=== PATIENT | female | born 1990 | race Caucasian/White ===

== ENCOUNTER 2021-05-26 09:35 | Day surgery (SDC) | payer OTHER ==
[2021-05-26] MEDS ORDERED: LIDOCAINE HCL 2% 100 MG/5 ML IJ ONE (09:36)
[2021-05-26] MEDS ORDERED: Lactated Ringers 1,000 ML IV ONE (10:36)
[2021-05-26] MEDS ORDERED: DIPRIVAN 200 MG/20 ML IV ONE (10:59)
--- NOTE | 2021-05-26 12:07 | XRAY ---
Indication: Left C2-C5 MBB. Intraoperative fluoroscopy provided for 36 seconds. 2 digital spot image submitted for interpretation demonstrates posterior needle tips projecting over the expected left C2-C5 nerve roots. Correlate with intraoperative findings/report.
--- NOTE | 2021-05-26 12:31 | XRAY ---
36 seconds fluoroscopy time in surgery for left C2-C5 MBB.
== END 2021-05-26 11:27 | disposition home or self-care (01) ==
LOC: SDC-PAIN 09:35
PROVIDERS: ATTEND Psychiatry & Neurology Pain Medicine
DX: M47.812 Spondylosis without myelopathy or radiculopathy, cervical region (principal); E11.9 Type 2 diabetes mellitus without complications; Z79.899 Other long term (current) drug therapy
CPT/HCPCS: 36415; 64490; 64491; 64492; 72040; 77002; 82947; 84702; J2704

== ENCOUNTER 2021-07-21 11:33 | Day surgery (SDC) | payer OTHER ==
[2021-07-21] MEDS ORDERED: LIDOCAINE HCL 2% 100 MG/5 ML IJ ONE (11:34)
[2021-07-21] MEDS ORDERED: DIPRIVAN 200 MG/20 ML IV ONE ×2 (13:17→13:19)
[2021-07-21] MEDS ORDERED: Lactated Ringers 1,000 ML IV ONE ×2 (13:22)
--- NOTE | 2021-07-21 14:28 | XRAY ---
Indication: Right C2-C5 MBB. Intraoperative fluoroscopy provided for 47 seconds. 2 digital spot image submitted for interpretation demonstrates posterior needle tips projecting over the expected right C2-C5 nerve roots. Correlate with intraoperative findings/report.
--- NOTE | 2021-07-21 14:30 | XRAY ---
47 seconds fluoroscopy time in surgery for right C2-C5 MBB.
== END 2021-07-21 13:43 | disposition home or self-care (01) ==
LOC: SDC-PAIN 11:33
PROVIDERS: ATTEND Psychiatry & Neurology Pain Medicine
DX: M47.812 Spondylosis without myelopathy or radiculopathy, cervical region (principal); E11.9 Type 2 diabetes mellitus without complications; Z79.899 Other long term (current) drug therapy
CPT/HCPCS: 36415; 64490; 64491; 64492; 72040; 77002; 81025; 82947; J2704

== ENCOUNTER 2021-09-01 11:32 | Day surgery (SDC) | payer OTHER ==
[2021-09-01] MEDS ORDERED: Marcaine Mpf 0.5% Vial 30 Ml IJ ONE (11:33)
[2021-09-01] MEDS ORDERED: DIPRIVAN 200 MG/20 ML IV ONE (12:44)
[2021-09-01] MEDS ORDERED: Lactated Ringers 1,000 ML IV ONE (12:57)
--- NOTE | 2021-09-01 14:32 | XRAY ---
Indication: Left C2-C5 MBB. Intraoperative fluoroscopy provided for 26 seconds. 3 digital spot image submitted for interpretation demonstrates posterior needle tips projecting over the expected left C2-C5 nerve roots. Correlate with intraoperative findings/report.
--- NOTE | 2021-09-01 14:36 | XRAY ---
26 seconds of fluoroscopy was used in surgery for a left C2-C5 MBB.
== END 2021-09-01 13:17 | disposition home or self-care (01) ==
LOC: SDC-PAIN 11:32
PROVIDERS: ATTEND Psychiatry & Neurology Pain Medicine
DX: M47.812 Spondylosis without myelopathy or radiculopathy, cervical region (principal); E11.9 Type 2 diabetes mellitus without complications; Z79.899 Other long term (current) drug therapy
CPT/HCPCS: 64490; 64491; 64492; 72040; 77002; 81025; 82947; J2704

== ENCOUNTER 2021-11-10 11:44 | Day surgery (SDC) | payer OTHER ==
[2021-11-10] MEDS ORDERED: Marcaine Mpf 0.5% Vial 30 Ml IJ ONE (11:45)
[2021-11-10] MEDS ORDERED: DIPRIVAN 200 MG/20 ML IV ONE ×2 (12:52→13:03)
[2021-11-10] MEDS ORDERED: Lactated Ringers 1,000 ML IV ONE (13:46)
--- NOTE | 2021-11-10 14:33 | XRAY ---
Indication: Right C2-C5 MBB. Intraoperative fluoroscopy provided for 39 seconds. 2 digital spot image submitted for interpretation demonstrates posterior needle tips projecting over the expected right C2-C5 nerve roots. Correlate with intraoperative findings/report.
--- NOTE | 2021-11-11 09:19 | XRAY ---
39 seconds fluoroscopy time in surgery for right C2-C5 MBB.
== END 2021-11-10 13:20 | disposition home or self-care (01) ==
LOC: SDC-PAIN 11:44
PROVIDERS: ATTEND Psychiatry & Neurology Pain Medicine
DX: M47.812 Spondylosis without myelopathy or radiculopathy, cervical region (principal); E11.9 Type 2 diabetes mellitus without complications; Z79.899 Other long term (current) drug therapy
CPT/HCPCS: 36415; 64490; 64491; 64492; 72040; 77002; 82947; 84703; J2704

== ENCOUNTER 2021-12-15 07:02 | Day surgery (SDC) | payer OTHER ==
[2021-12-15] MEDS ORDERED: Decadron 4 MG INJ IV ONE (07:03)
[2021-12-15] MEDS ORDERED: Marcaine Mpf 0.5% Vial 30 Ml IJ ONE (07:03)
[2021-12-15] MEDS ORDERED: LIDOCAINE HCL 1% 50 MG/5 ML VL PF IJ ONE (07:03)
[2021-12-15] MEDS ORDERED: DIPRIVAN 200 MG/20 ML IV ONE (08:19)
--- NOTE | 2021-12-15 10:41 | XRAY ---
Indication: Right C2-C5 RFA. Intraoperative fluoroscopy provided for 1 minute 6 seconds. 3 digital spot image submitted for interpretation demonstrates posterior needle tips projecting over the expected right C2-C5 nerve roots. Correlate with intraoperative findings/report.
--- NOTE | 2021-12-15 10:55 | XRAY ---
One minute and 16 seconds of fluoroscopy was used in surgery for a right C2-C5 RFA.
[2021-12-15] MEDS ORDERED: Lactated Ringers 1,000 ML IV ONE (12:37)
== END 2021-12-15 08:55 | disposition home or self-care (01) ==
LOC: SDC-PAIN 07:02
PROVIDERS: ATTEND Psychiatry & Neurology Pain Medicine
DX: M47.812 Spondylosis without myelopathy or radiculopathy, cervical region (principal); Z79.899 Other long term (current) drug therapy
CPT/HCPCS: 01939; 64633; 64634; 72040; 77002; 81025; 82947; J1100; J2001; J2704

== ENCOUNTER 2021-12-22 06:57 | Day surgery (SDC) | payer OTHER ==
[2021-12-22] MEDS ORDERED: Marcaine Mpf 0.5% Vial 30 Ml IJ ONE (06:58)
[2021-12-22] MEDS ORDERED: Decadron 4 MG INJ IV ONE (06:58)
[2021-12-22] MEDS ORDERED: XYLOCAINE-MPF 1% 5ML SDV IJ ONE (06:58)
[2021-12-22] MEDS ORDERED: DIPRIVAN 200 MG/20 ML IV ONE ×2 (08:02→08:18)
[2021-12-22] MEDS ORDERED: Lactated Ringers 1,000 ML IV ONE (10:10)
--- NOTE | 2021-12-22 19:11 | XRAY ---
Indication: Left C2-C5 RFA. Intraoperative fluoroscopy provided for 48 seconds. 3 digital spot image submitted for interpretation demonstrates posterior needle tips projecting over the expected left C2-C5 nerve roots. Correlate with intraoperative findings/report.
--- NOTE | 2021-12-22 19:33 | XRAY ---
48 seconds of fluoroscopy was used in surgery for a left C2-C5 RFA.
== END 2021-12-22 08:50 | disposition home or self-care (01) ==
LOC: SDC-PAIN 06:57
PROVIDERS: ATTEND Psychiatry & Neurology Pain Medicine
DX: M47.812 Spondylosis without myelopathy or radiculopathy, cervical region (principal); E11.9 Type 2 diabetes mellitus without complications; Z79.899 Other long term (current) drug therapy
CPT/HCPCS: 01939; 64633; 64634; 72040; 77002; 81025; 82947; J1100; J2704

== ENCOUNTER 2022-03-16 06:43 | Day surgery (SDC) | payer OTHER ==
[2022-03-16] MEDS ORDERED: LIDOCAINE HCL 2% 100 MG/5 ML IJ ONE (06:44)
[2022-03-16] MEDS ORDERED: DIPRIVAN 200 MG/20 ML IV ONE (08:36)
--- NOTE | 2022-03-16 10:30 | XRAY ---
Indication: Bilateral L4-S1 MBB. Intraoperative fluoroscopy provided for 12 seconds. Single digital spot image submitted for interpretation demonstrates posterior needle tips projecting over the expected left and right L4-S1 nerve roots. Correlate with intraoperative findings/report.
--- NOTE | 2022-03-16 10:46 | XRAY ---
12 seconds of fluoroscopy was used in surgery for a bilateral L4-S1 MBB.
[2022-03-16] MEDS ORDERED: Lactated Ringers 1,000 ML IV ONE (12:48)
== END 2022-03-16 09:05 | disposition home or self-care (01) ==
LOC: SDC-PAIN 06:43
PROVIDERS: ATTEND Psychiatry & Neurology Pain Medicine
DX: M47.816 Spondylosis without myelopathy or radiculopathy, lumbar region (principal); Z79.899 Other long term (current) drug therapy
CPT/HCPCS: 64493; 64494; 72020; 77002; 81025; 82947; J2704

== ENCOUNTER 2022-05-18 07:00 | Day surgery (SDC) | payer OTHER ==
[2022-05-18] MEDS ORDERED: BUPIVACAINE 0.5% VIAL IJ ONE (07:01)
[2022-05-18] MEDS ORDERED: DIPRIVAN 200 MG/20 ML IV ONE (08:32)
--- NOTE | 2022-05-18 10:05 | XRAY ---
Indication: Bilateral L4-S1 MBB. Intraoperative fluoroscopy provided for 15 seconds. Single digital spot image submitted for interpretation demonstrates posterior needle tips projecting over the expected left and right L4-S1 nerve roots. Correlate with intraoperative findings/report.
--- NOTE | 2022-05-18 11:35 | XRAY ---
15 seconds of fluoroscopy was used in surgery for a bilateral L4-S1 MBB.
[2022-05-18] MEDS ORDERED: Lactated Ringers 1,000 ML IV ONE (13:52)
== END 2022-05-18 09:00 | disposition home or self-care (01) ==
LOC: SDC-PAIN 07:00
PROVIDERS: ATTEND Psychiatry & Neurology Pain Medicine
DX: M47.816 Spondylosis without myelopathy or radiculopathy, lumbar region (principal); E11.9 Type 2 diabetes mellitus without complications; Z79.899 Other long term (current) drug therapy
CPT/HCPCS: 64493; 64494; 72020; 77002; 81025; 82947; J2704

== ENCOUNTER 2022-06-29 10:53 | Day surgery (SDC) | payer OTHER ==
[2022-06-29] MEDS ORDERED: Depo-Medrol 40 MG/ML IM ONE (10:54)
[2022-06-29] MEDS ORDERED: BUPIVACAINE 0.5% VIAL IJ ONE (10:54)
[2022-06-29] MEDS ORDERED: LIDOCAINE HCL 1% 50 MG/5 ML VL PF IJ ONE (10:54)
[2022-06-29 11:08] LABS: HCG URINE TEST NEGATIVE (NEGATIVE)
[2022-06-29] MEDS ORDERED: DIPRIVAN 200 MG/20 ML IV ONE (12:27)
--- NOTE | 2022-06-29 14:54 | XRAY ---
Indication: Right L4-S1 RFA. Interoperative fluoroscopy provided for 20 seconds. 6 digital spot image submitted for interpretation demonstrates posterior needle tips projecting over the expected right L4-S1 nerve roots. Correlate with intraoperative findings/report.
--- NOTE | 2022-06-29 14:57 | XRAY ---
20 seconds of fluoroscopy was used in surgery for a right L4-S1 RFA.
[2022-06-29] MEDS ORDERED: Lactated Ringers 1,000 ML IV ONE (15:04)
== END 2022-06-29 13:10 | disposition home or self-care (01) ==
LOC: SDC-PAIN 10:53
PROVIDERS: ATTEND Psychiatry & Neurology Pain Medicine
DX: M47.816 Spondylosis without myelopathy or radiculopathy, lumbar region (principal); E11.9 Type 2 diabetes mellitus without complications; Z79.899 Other long term (current) drug therapy
CPT/HCPCS: 36415; 64635; 64636; 72100; 77002; 81025; 82947; J1030; J2001; J2704

== ENCOUNTER 2022-07-06 10:49 | Day surgery (SDC) | payer OTHER ==
[2022-07-06] MEDS ORDERED: BUPIVACAINE 0.5% VIAL IJ ONE (10:50)
[2022-07-06] MEDS ORDERED: LIDOCAINE HCL 1% 50 MG/5 ML VL PF IJ ONE (10:50)
[2022-07-06] MEDS ORDERED: Depo-Medrol 40 MG/ML IM ONE (10:50)
[2022-07-06 11:10] LABS: HCG URINE TEST NEGATIVE (NEGATIVE)
[2022-07-06] MEDS ORDERED: DIPRIVAN 200 MG/20 ML IV ONE (12:33)
--- NOTE | 2022-07-06 15:31 | XRAY ---
Indication: Left L4-S1 RFA. Intraoperative fluoroscopy provided for 24 seconds. 3 digital spot image submitted for interpretation demonstrates posterior needle tips projecting over the expected left L4-S1 nerve roots. Correlate with intraoperative findings/report.
[2022-07-06] MEDS ORDERED: Lactated Ringers 1,000 ML IV ONE (15:41)
--- NOTE | 2022-07-06 17:08 | XRAY ---
24 seconds of fluoroscopy was used in surgery for a left L4-S1 RFA.
== END 2022-07-06 13:10 | disposition home or self-care (01) ==
LOC: SDC-PAIN 10:49
PROVIDERS: ATTEND Psychiatry & Neurology Pain Medicine
DX: M47.816 Spondylosis without myelopathy or radiculopathy, lumbar region (principal); E11.9 Type 2 diabetes mellitus without complications; Z79.899 Other long term (current) drug therapy
CPT/HCPCS: 36415; 64635; 64636; 72100; 77002; 81025; 82947; J1030; J2001; J2704

== ENCOUNTER 2023-02-23 08:19 | Day surgery (SDC) | payer OTHER ==
[2023-02-23] MEDS ORDERED: BUPIVACAINE 0.5% VIAL IJ ONE (08:20)
[2023-02-23] MEDS ORDERED: Depo-Medrol 40 MG/ML IM ONE (08:20)
[2023-02-23 09:11] LABS: HCG URINE TEST NEGATIVE (NEGATIVE)
[2023-02-23] MEDS ORDERED: DIPRIVAN 200 MG/20 ML IV ONE (09:40)
[2023-02-23] MEDS ORDERED: Versed 2 MG/2 ML Injection ONE (09:43)
--- NOTE | 2023-02-23 10:33 | XRAY ---
Indication: Bilateral SI joint injection. Intraoperative fluoroscopy provided for 15 seconds. 4 digital spot images submitted for interpretation demonstrates posterior needle tip projecting over the left and right SI joint. Correlate with intraoperative findings/report.
[2023-02-23] MEDS ORDERED: Lactated Ringers 1,000 ML IV ONE (12:04)
--- NOTE | 2023-02-24 10:57 | XRAY ---
15 seconds of fluoroscopy was used in surgery for a bilateral sacroiliac joint injection.
== END 2023-02-23 10:10 | disposition home or self-care (01) ==
LOC: SDC-PAIN 08:19
PROVIDERS: ATTEND Psychiatry & Neurology Pain Medicine
DX: M46.1 Sacroiliitis, not elsewhere classified (principal); E11.9 Type 2 diabetes mellitus without complications
CPT/HCPCS: 01992; 27096; 72202; 77002; 81025; 82947; G0260; J1030; J2250; J2704

== ENCOUNTER 2023-04-19 08:33 | Day surgery (SDC) | payer OTHER ==
[2023-04-19] MEDS ORDERED: XYLOCAINE-MPF 1% 5ML SDV IJ ONE (08:34)
[2023-04-19] MEDS ORDERED: BUPIVACAINE 0.5% VIAL IJ ONE (08:34)
[2023-04-19] MEDS ORDERED: Decadron 4 MG INJ IV ONE (08:34)
[2023-04-19 09:04] LABS: HCG URINE TEST NEGATIVE (NEGATIVE)
[2023-04-19] MEDS ORDERED: DIPRIVAN 200 MG/20 ML IV ONE (10:09)
[2023-04-19] MEDS ORDERED: Versed 2 MG/2 ML Injection ONE (10:10)
--- NOTE | 2023-04-19 12:04 | XRAY ---
Indication: Left C2-C4 RFA. Intraoperative fluoroscopy provided for 37 seconds. 3 digital spot image submitted for interpretation demonstrates posterior needle tips projecting over the expected left C2-C4 nerve roots. Correlate with intraoperative findings/report.
--- NOTE | 2023-04-19 12:08 | XRAY ---
37 seconds of fluoroscopy was used in surgery for a left C2-C4 RFA.
[2023-04-19] MEDS ORDERED: Lactated Ringers 1,000 ML IV ONE (14:20)
== END 2023-04-19 10:45 | disposition home or self-care (01) ==
LOC: SDC-PAIN 08:33
PROVIDERS: ATTEND Psychiatry & Neurology Pain Medicine
DX: M47.812 Spondylosis without myelopathy or radiculopathy, cervical region (principal); E11.9 Type 2 diabetes mellitus without complications
CPT/HCPCS: 64633; 72040; 77002; 81025; 82947; J1100; J2250; J2704

== ENCOUNTER 2023-05-10 07:50 | Day surgery (SDC) | payer OTHER ==
[2023-05-10 08:31] LABS: HCG URINE TEST NEGATIVE (NEGATIVE)
[2023-05-10] MEDS ORDERED: Versed 2 MG/2 ML Injection ONE (09:05)
[2023-05-10] MEDS ORDERED: DIPRIVAN 200 MG/20 ML IV ONE (09:05)
--- NOTE | 2023-05-10 10:57 | XRAY ---
34 seconds of fluoroscopy was used in surgery for an attempted right C2-C4 RFA. The procedure was cancelled.
[2023-05-10] MEDS ORDERED: Lactated Ringers 1,000 ML IV ONE (11:07)
== END 2023-05-10 09:48 | disposition home or self-care (01) ==
LOC: SDC-PAIN 07:50
PROVIDERS: ATTEND Psychiatry & Neurology Pain Medicine
DX: M47.812 Spondylosis without myelopathy or radiculopathy, cervical region (principal); E11.9 Type 2 diabetes mellitus without complications
CPT/HCPCS: 64633; 64634; 77002; 81025; 82947; J2250; J2704

== ENCOUNTER 2023-05-31 10:18 | Day surgery (SDC) | payer OTHER ==
[2023-05-31] MEDS ORDERED: BUPIVACAINE 0.5% VIAL IJ ONE (10:19)
[2023-05-31] MEDS ORDERED: LIDOCAINE HCL 1% 50 MG/5 ML VL PF IJ ONE (10:19)
[2023-05-31] MEDS ORDERED: Decadron 4 MG INJ IV ONE (10:19)
[2023-05-31 11:01] LABS: HCG URINE TEST NEGATIVE (NEGATIVE)
[2023-05-31] MEDS ORDERED: Pepcid 20 MG VIAL IV ONE (11:20)
[2023-05-31] MEDS ORDERED: DIPRIVAN 200 MG/20 ML IV ONE (11:57)
[2023-05-31] MEDS ORDERED: Versed 2 MG/2 ML Injection ONE (11:59)
[2023-05-31] MEDS ORDERED: Lactated Ringers 1,000 ML IV ONE (12:27)
--- NOTE | 2023-05-31 12:51 | XRAY ---
Indication: Right C2-C4 RFA. Intraoperative fluoroscopy provided for 23 seconds. 4 digital spot image submitted for interpretation demonstrate posterior needle tips projecting over the expected right C2-C4 nerve roots. Correlate with intraoperative findings/report.
--- NOTE | 2023-05-31 12:59 | XRAY ---
23 seconds of fluoroscopy was used in surgery for a right C2-C4 RFA.
== END 2023-05-31 12:41 | disposition home or self-care (01) ==
LOC: SDC-PAIN 10:18
PROVIDERS: ATTEND Psychiatry & Neurology Pain Medicine
DX: M47.812 Spondylosis without myelopathy or radiculopathy, cervical region (principal); E11.9 Type 2 diabetes mellitus without complications
CPT/HCPCS: 64633; 64634; 72040; 77002; 81025; 82947; J1100; J2001; J2250; J2704

== ENCOUNTER 2024-07-03 08:54 | Day surgery (SDC) | payer MEDICARE ==
[2024-07-03] MEDS ORDERED: LIDOCAINE HCL 1% AMPUL 5 ML IJ ONE (08:55)
[2024-07-03] MEDS ORDERED: BUPIVACAINE 0.5% VIAL IJ ONE (08:55)
[2024-07-03] MEDS ORDERED: dexAMETHasone sodium phosphate IJ ONE (08:55)
[2024-07-03 09:54] LABS: HCG URINE TEST NEGATIVE (NEGATIVE)
[2024-07-03] MEDS ORDERED: Lactated Ringers 500 ML IV ONE (10:55)
[2024-07-03] MEDS ORDERED: propofoL IV ONE (11:01)
--- NOTE | 2024-07-03 12:15 | XRAY ---
Indication: Right C2-C4 RFA. Intraoperative fluoroscopy provided for 29 seconds. 4 digital spot image submitted for interpretation demonstrates posterior needle tips project over expected right C2-C4 nerve roots. Correlate with intraoperative findings/report.
--- NOTE | 2024-07-03 12:45 | XRAY ---
29 seconds of fluoroscopy used in surgery for a right C2-C4 RFA.
== END 2024-07-03 11:45 | disposition home or self-care (01) ==
LOC: SDC-PAIN 08:54
PROVIDERS: ATTEND Psychiatry & Neurology Pain Medicine
DX: M47.812 Spondylosis without myelopathy or radiculopathy, cervical region (principal); E11.9 Type 2 diabetes mellitus without complications
CPT/HCPCS: 64633; 64634; 72040; 81025; 82947; J1100; J2704